=== PATIENT | male | born 1970 | race Caucasian/White ===

== ENCOUNTER 2021-05-14 10:08 | Observation (INO) | payer OTHER ==
[~2021-05-14] VITALS: Ht 180.3 cm; Wt 146.9 kg
[~2021-05-14 10:08] MED LIST: HYDROmorphone 2 MG/ML INJ. IVP PRN; IV RINGERS,LACTATED 1000ML 1,000 ML IV SCH; MORPHINE SULFATE 2 MG/ML INJ. IVP PRN; PROCHLORPERAZINE 10 MG/2 ML VIAL. IVP PRN; ceFAZolin SODIUM 3 GM in IV DEXTROSE 5% 100ML 100 ML IV PRN; fentaNYL PF VIAL 100 MCG/2 ML VIAL IVP PRN
[2021-05-14] MEDS ORDERED: MECO10005 PO (10:41)
[2021-05-14] MEDS ORDERED: FLUO40CA2 PO (10:41)
[2021-05-14] MEDS ORDERED: CETI10TA74 PO (10:41)
[2021-05-14] MEDS ORDERED: LOSA-73 PO (10:41)
[2021-05-14] MEDS ORDERED: ACET325T9 PO (10:41)
[2021-05-14] MEDS ORDERED: MULT-245 PO (10:41)
[2021-05-14] MEDS ORDERED: LAMO200T25 PO (10:41)
[2021-05-14] MEDS ORDERED: CHOL400C PO (10:41)
[2021-05-14 10:44] VITALS: BP 119/57
[2021-05-14] MEDS ORDERED: BUPIVACAINE-EPI 0.25%-1:200000 MPF 30 ML VIAL. ONE (10:49)
[2021-05-14] MEDS ORDERED: ONDANSETRON PF 4 MG/2 ML VIAL. ONE (10:58)
[2021-05-14] MEDS ORDERED: FAMOTIDINE 20 MG/2 ML VIAL ONE (10:58)
[2021-05-14] MEDS ORDERED: PROPOFOL 10 MG/ML (20ML) VIAL. IV ONE (10:58)
[2021-05-14] MEDS ORDERED: DEXAMETHASONE SOD PHOS 4 MG/ML VIAL ONE (10:58)
[2021-05-14] MEDS ORDERED: ROCURONIUM 50 MG/5 ML VIAL. ONE (10:58)
[2021-05-14] MEDS ORDERED: fentaNYL PF VIAL 100 MCG/2 ML VIAL ONE ×2 (10:59→13:47)
[2021-05-14] MEDS ORDERED: MIDAZOLAM HCL/PF 2 MG/2 ML VIAL. ONE (10:59)
[2021-05-14] MEDS ORDERED: LIDOCAINE 2% PF 5 ML VIAL. ONE (11:00)
[2021-05-14] MEDS ORDERED: MORPHINE SULFATE 10 MG/ML VIAL. ONE (12:23)
[2021-05-14] MEDS ORDERED: ePHEDrine PF IN SALINE 50 MG/10 ML SYRINGE. IV ONE (12:40)
[2021-05-14] MEDS ORDERED: GLYCOPYRROLATE 1 MG/5 ML VIAL. ONE (12:40)
[2021-05-14] MEDS ORDERED: NEOSTIGMINE METHYLSULFATE 5 MG/5 ML SYRINGE. ONE (13:00)
--- NOTE | 2021-05-14 13:28 | PDOC4 ---
Operative Note Operative Note Operative Note: Preoperative Diagnosis: Ventral hernia Postoperative Diagnosis: Same Procedure: Ventral hernia repair with mesh Surgeon: Brooks Cylinder Sander Operator: TK Senior Anesthesia: General EBL: 20 mL Specimen: None Drains: None Complications: None Indication: The patient is a 50-year-old male who is referred due to a ventral hernia located superior to the umbilicus. He was offered operative repair. The risks of surgery were discussed which include bleeding, infection, recurrence, pain, visceral injury, anesthetic risk, mesh reaction, potential need for additional surgery procedure. He understands and would like to proceed. Description: The patient was taken the operating room and placed supine on the operating table. General anesthesia was performed. The abdomen was prepped with ChloraPrep and draped with sterile towels, sheets, and an Ioban. A vertical incision was made overlying the hernia which was superior to the umbilicus. Cautery dissection was carried down to the fascia. The edges of the hernia defect were readily identified and clarified. A preperitoneal plane was developed circumferentially around the hernia defect. A large Ventralex ST mesh was then placed in this preperitoneal plane. The mesh was sutured into position at the 12, 3, 6, 9:00 positions using 0 Prolene in a horizontal mattress fashion. The fascial edges were then approximated over the mesh with interrupted 0 Prolene. The subcutaneous tissue was closed with 3-0 Vicryl. Skin was approximated with 4-0 Monocryl. The incision was infiltrated with half percent Marcaine with epinephrine. Steri-Strips and a sterile dressing were applied. The patient tolerated the procedure well and was sent to the recovery room in stable condition. At the end of the case all counts were correct. RIANNA BANUELOS MD May 14, 2021 13:28
[2021-05-14] MEDS ORDERED: NALOXONE 0.4 MG/ML VIAL. IV PRN (13:30)
[2021-05-14] MEDS ORDERED: oxyCODONE/APAP 5/325 1 TAB TABLET PO PRN ×2 (13:30)
[2021-05-14] MEDS ORDERED: ONDANSETRON PF 4 MG/2 ML VIAL. IVP PRN (13:30)
[2021-05-14] MEDS ORDERED: 0.9 % SODIUM CHLORIDE 10 ML DISP.SYRIN. IV PRN (13:30)
[2021-05-14] MEDS ORDERED: HYDROmorphone 2 MG/ML INJ. IV PRN (13:30)
[2021-05-14] MEDS ORDERED: PROCHLORPERAZINE 10 MG/2 ML VIAL. IV PRN (13:30)
[2021-05-14] MEDS ORDERED: IV NORMAL SALINE 1000ML BAG 1,000 ML IV SCH (13:30)
--- NOTE | 2021-05-14 17:34 | NUR ---
Pt arrived on unit at 1630 by bed via PACU staff, accompanied by Hammad, friend. Pt rating pain at 3/10 in abdomen, binder in place. POC/orders reviewed. Will assume care.
--- NOTE | 2021-05-14 18:20 | NUR ---
Upon admission assessment, pt had positive suicide screening. Pt denies any active suicidal thoughts. This RN notified Dr. Shields of positive screening. Orders received for Q1 hour check. Additional patient safety strategies initiated. This RN notified Andree, nursing electric repair supervisor. Diego and DALIA Virgen team also updated. DALIA Cortez team stated he would be in to see pt in approx 1 hour. Will pass along to night RN.
[2021-05-14 19:55] VITALS: BP 127/84
[2021-05-14 20:55] VITALS: BP 113/55
[2021-05-14 23:00] VITALS: BP 107/49
[2021-05-14] MEDS: IV 1/2 NORMAL SALINE 1,000 ML IV SCH ×2 (23:25→23:30)
[2021-05-15 03:00] VITALS: BP 127/60
[2021-05-15 07:00] VITALS: BP 114/54
[2021-05-15] MEDS ORDERED: lamoTRIgine 100 MG TABLET. PO SCH (09:00)
[2021-05-15] MEDS ORDERED: FLUoxetine HCL 20 MG CAPSULE PO SCH (09:00)
[2021-05-15] MEDS ORDERED: LOSARTAN POTASSIUM 50 MG TABLET. PO SCH (09:00)
[2021-05-15] MEDS ORDERED: MULTIVITAMIN with MINERAL TABLET. PO SCH (09:00)
[2021-05-15] MEDS ORDERED: CYANOCOBALAMIN (VITAMIN B-12) 1,000 MCG TABLET. PO SCH (09:00)
[2021-05-15] MEDS ORDERED: CETIRIZINE HCL 10 MG TABLET. PO SCH (09:00)
[2021-05-15] MEDS ORDERED: ENOXAPARIN 40 MG/0.4 ML SYRINGE. SQ SCH (09:00)
[2021-05-15] MEDS ORDERED: CHOLECALCIFEROL (VITAMIN D3) 1,000 UNIT TABLET PO SCH (09:00)
[2021-05-15] MEDS: IV 1/2 NORMAL SALINE 1,000 ML IV SCH (09:30)
[2021-05-15 11:00] VITALS: BP 111/55
--- NOTE | 2021-05-15 11:32 | PDOC ---
SURGICAL PROGRESS NOTE DATE: 05/15/21 TIME: 11:32 Subjective sore has walked tolerated breakfast Vital Signs Vital Signs Date Time Temp Pulse Resp B/P (MAP) Pulse Ox O2 Delivery O2 Flow Rate FiO2 05/15/21 09:00 45 114/54 05/15/21 07:00 98.7 20 95 Room Air 98.7 05/14/21 15:11 2.0 I&O Intake and Output 05/15/21 07:00 Intake Total 1820 ml Output Total 20 ml Balance 1800 ml Intake Oral 320 ml IV Total 1500 ml Output Estimated Blood Loss 20 ml # Voids 2 General: Alert, Oriented X3, Cooperative Abdomen: Soft, Other (dressing dry, binder in place) Labs Laboratory Tests Test 05/14/21 10:25 POC SARS CoV-2 Antigen Negative (NEGATIVE) Assessment/Plan s/p VIH ambulate, pain management plan home in AM Justicifation of Admission Dx: Justifications for Admission: Justification of Admission Dx: Yes Comments: hernia KIT CORONADO APRN May 15, 2021 11:32
[2021-05-15 15:00] VITALS: BP 122/45
[2021-05-15] MEDS ORDERED: OXYC1TAB15 PO (15:46)
--- NOTE | 2021-05-15 15:48 | DISCH ---
DISCHARGE INSTRUCTIONS Condition on Discharge Condition on Discharge: Stable Activity After Discharge Activity Instructions for Disc: Activity as tolerated Other activity instructions: ok to shower Lifting Instructions after Dis: No heavy lifting, No pulling or pushing Diet after Discharge Diet after Discharge: GI Soft Wound Incision Care Wound/Incision Care: Change dressing, May get incision wet Other wound/incision instructi: addis martino Contacting the DRDonna after DC Call your doctor for: Concerns you may have Follow-Up Follow up with: Dr Guy 2 weeks, call to schedule [phone] KIT CORONADO APRN May 15, 2021 15:48
--- NOTE | 2021-05-15 18:27 | NUR ---
[id number] patient discharged to home. Walked out with ANA
== END 2021-05-15 18:20 | disposition home or self-care (01) ==
LOC: SURG 10:08 → 4 NORTH 13:28
PROVIDERS: ADMIT Surgery; ATTEND Surgery
DX: K43.9 Ventral hernia without obstruction or gangrene (principal); Z20.822 Contact with and (suspected) exposure to COVID-19; I10 Essential (primary) hypertension; E11.9 Type 2 diabetes mellitus without complications; E66.01 Morbid (severe) obesity due to excess calories; F41.9 Anxiety disorder, unspecified; Z90.49 Acquired absence of other specified parts of digestive tract; Z98.84 Bariatric surgery status; Z79.899 Other long term (current) drug therapy; Z98.890 Other specified postprocedural states; Z68.41 Body mass index [BMI] 40.0-44.9, adult; Z87.891 Personal history of nicotine dependence
CPT/HCPCS: 49560; 49568; 96372; A4364; A4930; A6402; C1781; G0378; G0379; J1100; J1650; J2250; J2270; J2405; J2704; J2710; J3010; J3490; A4223; A4452